=== PATIENT | male | born 1975 | race Hispanic/Latino ===

== ENCOUNTER 2024-06-30 15:53 | Emergency (ER) | payer OTHER ==
[~2024-06-30] VITALS: Ht 157.5 cm; Wt 78.1 kg
[2024-06-30 16:07] VITALS: PULSE 82; RESP 18; TEMP 97.5
[2024-06-30] MEDS ORDERED: LISINOPRIL10 MG PO (16:23)
[2024-06-30] MEDS ORDERED: SODIUM CHLORIDE FLUSH 10 ML SYR INJ PRN (16:30)
[2024-06-30] MEDS ORDERED: TENORMIN25 MG PO (16:43)
[2024-06-30] MEDS: HYDRALAZINE HCL 20 MG/ML VIAL IV ONE (16:44)
[2024-06-30] MEDS: CLONIDINE HCL 0.1 MG TAB PO ONE (16:44)
[2024-06-30 17:45] VITALS: BP 158/88; PULSE 89; RESP 20; TEMP 97.4; O2SAT 97
== END 2024-06-30 17:45 | disposition home or self-care (01) ==
LOC: FSED 16:03
DX: I16.0 Hypertensive urgency (principal); E11.65 Type 2 diabetes mellitus with hyperglycemia; I10 Essential (primary) hypertension; E66.9 Obesity, unspecified; R94.31 Abnormal electrocardiogram [ECG] [EKG]
CPT/HCPCS: 80053; 82553; 84484; 85025; 99283; J0360